=== PATIENT | male | born 1975 | race Two or more races ===

== ENCOUNTER 2017-06-05 00:25 | Emergency (ER) | payer SELFPAY ==
[2017-06-05 00:54] LABS: ADD MAN DIFF? NO
[2017-06-05 01:07] LABS: BASO # 0.1 x10^3/uL (0.0-0.2); BASO % 1 % (0-3); EOS # 0.1 x10^3/uL (0.0-0.7); EOS % 2 % (0-3); HEMATOCRIT 43.5 % (39.0-53.0); HEMOGLOBIN 15.3 g/dL (13.0-17.5); LYMPH # 2.8 x10^3/uL (1.0-4.8); LYMPH % 36 % (24-48); MEAN CORPUSCULAR HEMOGLOBIN 33 pg (25-35); MEAN CORPUSCULAR HGB CONC 35 g/dL (31-37); MEAN CORPUSCULAR VOLUME 93 fL (79-100); MONO # 0.5 x10^3/uL (0.0-1.1); MONO % 7 % (0-9); NEUT # 4.3 x10^3uL (1.8-7.7); NEUT % 55 % (31-73); PLATELET COUNT 204 x10^3/uL (140-400); RED BLOOD COUNT 4.71 x10^6/uL (4.30-5.70); RED CELL DISTRIBUTION WIDTH 13.7 % (11.5-14.5); WHITE BLOOD COUNT 7.8 x10^3/uL (4.0-11.0)
[2017-06-05] MEDS: IV NORMAL SALINE 1000ML BAG 1,000 ML IV (01:09)
[2017-06-05 01:11] LABS: ANION GAP 16 (6-14); BLOOD UREA NITROGEN 10 mg/dL (8-26); BUN/CREATININE RATIO 10 (6-20); CALCIUM 8.7 mg/dL (8.5-10.1); CARBON DIOXIDE 23 mmol/L (21-32); CHLORIDE 101 mmol/L (98-107); GFR 82.3; GLUCOSE 141 mg/dL (70-99); POTASSIUM 3.3 mmol/L (3.5-5.1); SODIUM 140 mmol/L (136-145)
[2017-06-05 01:17] LABS: ALBUMIN 3.6 g/dL (3.4-5.0); ALBUMIN/GLOBULIN RATIO 0.8 (1.0-1.7); ALK PHOS 117 U/L (46-116); ALT (SGPT) 153 U/L (16-63); AST (SGOT) 126 U/L (15-37); LIPASE 134 U/L (73-393); TOTAL BILIRUBIN 0.5 mg/dL (0.2-1.0); TOTAL PROTEIN 8.1 g/dL (6.4-8.2)
[2017-06-05 01:21] LABS: TROPONINI < 0.017 ng/mL (0.000-0.055)
[2017-06-05 01:24] LABS: NT-PRO BNP 5 pg/mL (0-124)
[2017-06-05 01:24] LABS: CKMB INDEX 0.3 % (0-4); CKMB MASS 0.9 ng/mL (0.0-3.6); CREATINE KINASE 329 U/L (39-308)
== END 2017-06-05 03:19 | disposition home or self-care (01) ==
LOC: ER 00:25
DX: R07.89 Other chest pain (principal); R00.2 Palpitations; F15.10 Other stimulant abuse, uncomplicated; R06.02 Shortness of breath; F10.10 Alcohol abuse, uncomplicated
CPT/HCPCS: 36415; 71045; 80053; 82553; 83690; 83880; 84484; 85025; 93005; 96360; 99285-25; J7030